=== PATIENT | male | born 1965 | race Caucasian/White ===

== ENCOUNTER 2020-10-05 07:50 | Emergency (ER) | payer BC, SELFPAY ==
[2020-10-05 07:56] VITALS: BP 167/123; PULSE 114; RESP 20; TEMP 36.9; O2SAT 98; BMI 27.1
--- NOTE | 2020-10-05 07:59 | ECG_ITS ---
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 Measurements Intervals [place] Rate: 116 P: 47 FL: 159 QRS: -39 QRSD: 93 T: 12 QT: 334 QTc: 464 Interpretive Statements SINUS TACHYCARDIA POSSIBLE LEFT ATRIAL ENLARGEMENT [-0.1mV P WAVE IN V1/V2] LEFT AXIS DEVIATION [QRS AXIS < -30] POSSIBLE LEFT VENTRICULAR HYPERTROPHY No previous ECG available for comparison Electronically Signed On 10-05-2020 18:27:06 FARM FACILITY MANAGER by Yady Taylor M.D. [email or web address]
--- NOTE | 2020-10-05 07:59 | XR_ITS ---
WS: [id number] PORTABLE CHEST HISTORY: Chest pain with heartburn and vomiting. COMPARISON: None available. Lungs are clear and well expanded. No pleural effusion or pneumothorax. Cardiac size: Normal. Mediastinum/Aorta: Normal mediastinum. No osseous abnormality seen. XR/XR chest 1V portable 82512 IMPRESSION: Unremarkable portable chest.
--- NOTE | 2020-10-05 08:00 | ED_ITS ---
HPI - Abdominal Pain General: Chief Complaint: Abdominal Pain Stated Complaint: n/v/heartburn Time Seen by Provider: 10/05/20 07:54 Source: patient Mode of arrival: ambulatory Limitations: no limitations History of Present Illness: HPI narrative: 55-year-old male states been having epigastric dull pain over the last 2 to 3 days with vomiting. He states he has a history of heartburn and it feels similar. States pain is sharp in nature and rates it a 5 out of 10. Denies any worsening or improving factors. Denies any chest pain denies any fever. He has had no diarrhea or constipation. No history of abdominal surgeries. Associated Symptoms: Reports nausea and vomiting; Denies chills, dysuria and fever(s) Review of Systems Const: Denies: fever(s), chills, body aches or change in appetite Eyes: Denies: blurry vision or eye discomfort ENMT: Denies: throat pain or dental pain Card: Denies: chest pain Resp: Denies: dyspnea GI: Reports: abdominal pain, nausea and vomiting : Denies: dysuria Musc: Denies: neck pain or back pain Skin/Breast: Denies: rash Neuro: Denies: headache(s) Psych: Denies: depression Benitez/Lymph: Denies: easy bruising All/Imm: Denies: urticaria Physical Exam Const: COMMON NORMALS: no acute distress, patient oriented x3 and healthy appearing HENMT: COMMON NORMALS: normocephalic and atraumatic HEAD & SCALP: normocephalic and atraumatic Eye: COMMON NORMALS: Equal, round and reactive pupils present and EOMs intact bilaterally PUPIL: Yes Equal, round and reactive pupils present Neck/C-Spine: COMMON NORMALS: full ROM and supple Chest: COMMONS NORMALS: normal inspection of the chest and normal palpation of entire chest wall Resp: COMMON NORMALS: normal respiratory effort, No retractions, No use of accessory muscles and clear to auscultation bilaterally AUSCULTATION: clear to auscultation bilaterally Cardio: COMMON NORMALS: regular rhythm and No murmurs present (Cardio) RATE: tachycardic RHYTHM: regular rhythm GI: COMMON NORMALS: Normal to inspection, nondistended, normoactive bowel sounds present, Soft to palpation, non-tender and no masses PALPATION: Yes Soft to palpation Extremity: COMMON NORMALS: normal to inspection and full ROM Neuro: COMMON NORMALS: patient oriented x3, moves all extremities and no focal motor deficits Psych: COMMON NORMALS: mental status grossly normal, Normal thought process present and cooperative THOUGHT PROCESS: Normal thought process present Skin: COMMON NORMALS: no rashes or lesions noted and no wounds GENERAL SKIN EXAM: no rashes or lesions noted Course Vital Signs: Vital signs: Vital Signs Temperature 98.5 F 10/05/20 07:56 Pulse Rate 102 H 10/05/20 10:18 Respiratory Rate 18 10/05/20 10:18 Blood Pressure 149/111 10/05/20 10:18 Pulse Oximetry 96 10/05/20 10:18 MDM - Abdominal Pain MDM Narrative: Medical decision making narrative: Cal presents here with abdominal pain is epigastric in nature and likely reflux. [place] much improved after GI cocktail. He has no right lower quadrant tenderness no sign of appendicitis. He does have hypercalcemia. We will start him on Protonix and he is to follow-up his PCP in 1 week for lab redraw. He is to return if worsening. He understands and agrees to the plan. Lab Data: Labs: Lab Results 10/05/20 10/05/20 10/05/20 Range/Units 08:17 08:17 08:17 WBC 11.8 H (4.0-10.0) 10^3/ uL RBC 6.03 H (4.1-5.3) 10^6/u L Hgb 17.6 H (11.7-16.6) g/dL Hct 51.9 (42.0-52.0) % MCV 86.1 (80-94) fL MCH 29.2 (28.0-34.0) pg MCHC 33.9 (30.0-36.0) g/dL RDW 13.1 (12.1-15.1) % Plt Count 187 (130-400) 10^3/c mm MPV 11.3 H (7.4-10.4) fL Neut % (Auto) 83.7 % Lymph % (Auto) 6.7 % [place] % (Auto) 8.9 % Eos % (Auto) 0.1 % Baso % (Auto) 0.3 % Neut # (Auto) 9.87 H (1.8-7.7) 10^3/u L Lymph # (Auto) 0.8 (0.8-4.8) 10^3/u L [place] # (Auto) 1.1 H (0.2-0.9) 10^3/u L Eos # (Auto) 0.0 (0.0-0.8) 10^3/u L Baso # (Auto) 0.0 (0.0-0.1) 10^3/u L Nucleated RBC % (a uto) 0 % Nucleated RBCs # 0.0 /100WBC D-Dimer (0-0.59) ug/mIFE U Sodium 134 L (136-145) mmol/L Potassium 3.7 (3.5-5.1) mmol/L Chloride 91 L (98-107) mmol/L Carbon Dioxide 30 H (22-29) mmol/L Anion Gap 16.7 (5-19) BUN 24 H (6-20) mg/dL Creatinine 1.3 H (0.7-1.2) mg/dL GFR Calculation 57.5 L (90-130) mL/min Glucose 140 H (65-115) mg/dL Calculated Osmolal ity 284 L (285-295) mOsm/k g Lactate 1.2 (0.5-2.2) mmol/L Calcium 15.1 H* (8.5-10.5) mg/dL Total Bilirubin 1.2 (0.15-1.2) mg/dL AST 48 H (0-40) U/L ALT 49 H (0-41) U/L Alkaline Phosphata se 78 (40-130) IU/L Troponin T Baselin e (0-15) ng/L Total Protein 7.6 (6.6-8.7) g/dL Albumin 4.6 (3.5-5.2) g/dL Globulin 3.0 (1.3-4.6) g/dL Lipase 116 H (13-60) U/L 10/05/20 10/05/20 Range/Units 08:17 08:17 WBC (4.0-10.0) 10^3/ uL RBC (4.1-5.3) 10^6/u L Hgb (11.7-16.6) g/dL Hct (42.0-52.0) % MCV (80-94) fL MCH (28.0-34.0) pg MCHC (30.0-36.0) g/dL RDW (12.1-15.1) % Plt Count (130-400) 10^3/c mm MPV (7.4-10.4) fL Neut % (Auto) % Lymph % (Auto) % [place] % (Auto) % Eos % (Auto) % Baso % (Auto) % Neut # (Auto) (1.8-7.7) 10^3/u L Lymph # (Auto) (0.8-4.8) 10^3/u L [place] # (Auto) (0.2-0.9) 10^3/u L Eos # (Auto) (0.0-0.8) 10^3/u L Baso # (Auto) (0.0-0.1) 10^3/u L Nucleated RBC % (a uto) % Nucleated RBCs # /100WBC D-Dimer 1.10 H (0-0.59) ug/mIFE U Sodium (136-145) mmol/L Potassium (3.5-5.1) mmol/L Chloride (98-107) mmol/L Carbon Dioxide (22-29) mmol/L Anion Gap (5-19) BUN (6-20) mg/dL Creatinine (0.7-1.2) mg/dL GFR Calculation (90-130) mL/min Glucose (65-115) mg/dL Calculated Osmolal ity (285-295) mOsm/k g Lactate (0.5-2.2) mmol/L Calcium (8.5-10.5) mg/dL Total Bilirubin (0.15-1.2) mg/dL AST (0-40) U/L ALT (0-41) U/L Alkaline Phosphata se (40-130) IU/L Troponin T Baselin e 11 (0-15) ng/L Total Protein (6.6-8.7) g/dL Albumin (3.5-5.2) g/dL Globulin (1.3-4.6) g/dL Lipase (13-60) U/L Imaging Data ^: CXR: Radiologist's impression: [address] [address] XRay Report Signed Patient: Cal Jacome Unit #: [id number] : 1965 Age/Sex: 55 / M ADM Date: 12/24 Loc: ER Room/Bed: Attending Dr: Ordering Provider/Ordering MD: Mary Nichols MD Date of Service: 10/05/20 Procedure(s): XR chest 1V portable 50850 Accession Number(s): [id number] Report Number: [id number] WS: [id number] PORTABLE CHEST HISTORY: Chest pain with heartburn and vomiting. COMPARISON: None available. Lungs are clear and well expanded. No pleural effusion or pneumothorax. Cardiac size: Normal. Mediastinum/Aorta: Normal mediastinum. No osseous abnormality seen. XR/XR chest 1V portable 05405 IMPRESSION: Unremarkable portable chest. CT Abd/Pel: Radiologist's impression: [place] [address] CT Scan Report Signed Patient: Cal Jacome Unit #: [id number] : 1965 Age/Sex: 55 / M ADM Date: 10/05/20 Loc: ER Room/Bed: Attending Dr: Ordering Provider/Ordering MD: Mary Nichols MD Date of Service: 10/05/20 Procedure(s): CT angio chest w abd pel w con Accession Number(s): [id number] Report Number: [id number] WS: [id number] CTA CHEST WITH CT ABDOMEN AND PELVIS. HISTORY: Nausea and vomiting with heartburn. Stomach pains. TECHNIQUE: CT angiogram is performed through the chest. Additional imaging is performed through the abdomen and pelvis with IV contrast. Sagittal and coronal reformats have been submitted. MIP imaging also reviewed. All CT scans at [facility] use at least one of these dose optimization techniques: automated exposure control; mA and/or kV adjustment per patient size (includes targeted exams where dose is matched to clinical indication); or iterative reconstruction. Contrast: Visipaque 95 cc IV. DLP: 3170.09 mGy.cm COMPARISON: Chest radiograph 10/05/2020. Chest CTA: Very limited opacification of the pulmonary artery. Multiple attempts for adequate opacification with unsuccessful. There is no complete occlusion. Other than that small thrombi cannot be excluded. Normal size aorta and great vessels. Heart size is normal. No pericardial or pleural effusion. No pulmonary mass. Micronodule measuring less than 3 mm lingu la. No mediastinal or hilar adenopathy. Very minimal esophageal wall thickening. Abdomen CT: Marked fluid distention of the stomach. On the sequences through the abdomen there is fluid noted now distending the distal esophagus from reflux disease. Liver, spleen, pancreas, adrenal glands and kidneys are negative. Normal aorta. No GI tract obstruction. There is high density material within the colon which is probably medicinal. No oral contrast was given for this examination. The appendix is slightly enlarged but there is no adjacent inflammation. Appendix measures [address]: Well-distended urinary bladder. No free fluid or adenopathy. No destructive bone lesions. CT/CT angio chest w abd pel w con IMPRESSION: 1. Marked fluid distention of the stomach with demonstration of gastroesophageal reflux. 2. An adequate opacification of the pulmonary arteries despite multiple attempts. No large central PE. Beyond that the opacification is very limited. 3. The appendix is top normal size with no adjacent inflammation. Very early acute appendicitis may appear similar. 4. No GI tract obstruction. EKG Data ^: EKG 1: Attestation: I personally reviewed and interpreted this EKG as follows: EKG interpretation date: 10/05/20 EKG interpretation time: 08:04 Interpretation: Sinus tachycardia heart rate 116 QRS 93 QTc [address] or T wave abnormalities EKG 2: Attestation: I personally reviewed and interpreted this EKG as follows: EKG interpretation date: 10/05/20 EKG interpretation time: 10:05 Interpretation: nsr hr [address] or t wave abnormalities qrs 89 qtc 417 Discharge Plan Discharge Patient Disposition: Home Clinical Impression: Hypercalcemia Abdominal pain Qualifiers: Abdominal location: epigastric Qualified Code(s): R10.13 - Epigastric pain Condition: Stable Prescriptions: New ondansetron 4 mg tablet,disintegrating 4 mg PO Q6H PRN (Reason: nausea and vomiting) Qty: 14 RF: 0 Protonix 40 mg tablet,delayed release (DR/EC) 40 mg PO DAILY Qty: 60 RF: 0 No Action multivitamin Tablet 1 tab PO DAILY PRN (Reason: unknown) RF: 0 Benadryl 1 cap PO PRN RF: 0 Discharge Orders: Discharge ED (Routine); Ordered 10/05/20 Ordered By: Mary Nichols Referrals: Jeronimo Hamm [Primary Care Provider] - 1-3 days Discharge Diet: Advance as tolerated Discharge Activity: Resume usual activity Patient Instructions: Abdominal Pain (ED), Hypercalcemia (ED) Coding Level of Care Code ED [employer] Curator for Chg Fwd Exam Comprehensive
[2020-10-05 08:35] LABS: Basophils % 0.3 %; Eosinophils % 0.1 %; Hematocrit 51.9 % (42.0-52.0); Hemoglobin 17.6 g/dL (11.7-16.6); Lymphocytes # 0.8 10^3/uL (0.8-4.8); Lymphocytes % 6.7 %; Mean Corpuscular HGB Conc 33.9 g/dL (30.0-36.0); Mean Corpuscular Hemoglobin 29.2 pg (28.0-34.0); Mean Corpuscular Volume 86.1 fL (80-94); Mean Platelet Volume 11.3 fL (7.4-10.4); Monocytes # 1.1 10^3/uL (0.2-0.9); Monocytes % 8.9 %; Neutrophils # 9.87 10^3/uL (1.8-7.7); Neutrophils % 83.7 %; Nucleated Red Blood Cells % 0 %; Platelet Count 187 10^3/cmm (130-400); Red Blood Count 6.03 10^6/uL (4.1-5.3); Red Cell Distribution Width 13.1 % (12.1-15.1); White Blood Count 11.8 10^3/uL (4.0-10.0)
[2020-10-05 08:50] VITALS: RESP 18
[2020-10-05] MEDS: ondansetron 2 mg/ML SDV 2 mL 4 MG IVP (08:50)
[2020-10-05] MEDS: morphine 4 mg/mL SDV 1 mL IVP (08:50)
[2020-10-05] MEDS: sodium chloride 0.9% 1,000 ML 999 ML IV (08:51)
[2020-10-05 08:56] LABS: Alanine Aminotransferase 49 U/L (0-41); Albumin Level 4.6 g/dL (3.5-5.2); Alkaline Phosphatase 78 IU/L (40-130); Anion Gap 16.7 (5-19); Aspartate Amino Transferase 48 U/L (0-40); Blood Urea Nitrogen 24 mg/dL (6-20); Carbon Dioxide 30 mmol/L (22-29); Chloride 91 mmol/L (98-107); Glomerular Filtration Rate 57.5 mL/min (90-130); Glucose 140 mg/dL (65-115); Lipase 116 U/L (13-60); Osmolality Calculated 284 mOsm/kg (285-295); Potassium 3.7 mmol/L (3.5-5.1); Sodium 134 mmol/L (136-145); Total Bilirubin 1.2 mg/dL (0.15-1.2); Total Protein 7.6 g/dL (6.6-8.7)
[2020-10-05] MEDS: lidocaine 2% viscous 15 ML, aluminum-mag hydrox-simethicon 30 ML, sucralfate oral liq 1 GM PO (08:56)
[2020-10-05 08:57] LABS: Lactate (Lactic Acid level) 1.2 mmol/L (0.5-2.2)
[2020-10-05 09:04] LABS: Calcium 15.1 mg/dL (8.5-10.5)
--- NOTE | 2020-10-05 09:05 | CT_ITS ---
WS: [id number] CTA CHEST WITH CT ABDOMEN AND PELVIS. HISTORY: Nausea and vomiting with heartburn. Stomach pains. TECHNIQUE: CT angiogram is performed through the chest. Additional imaging is performed through the a bdomen and pelvis with IV contrast. Sagittal and coronal reformats have been submitted. MIP imaging also reviewed. All CT scans at [facility] use at least one of these dose optimization tech niques: automated exposure control; mA and/or kV adjustment per patient size (includes targeted exams where dose is matched to clinical indication); or iterative reconstruction. Contrast: Visipaque 95 cc IV. DLP: 3170.09 mGy.cm COMPARISON: Chest radiograph 10/05/2020. Chest CTA: Very limited opacification of the pulmonary artery. Multiple attempts for adequate opacifi cation with unsuccessful. There is no complete occlusion. Other than that small thrombi cannot be exc luded. Normal size aorta and great vessels. Heart size is normal. No pericardial or pleural effusion. No pulmonary mass. Micronodule measuring less than 3 mm lingula. No mediastinal or hilar adenopathy. Very minimal esophageal wall thickening. Abdomen CT: Marked fluid distention of the stomach. On the sequences through the abdomen there is flu id noted now distending the distal esophagus from reflux disease. Liver, spleen, pancreas, adrenal gl ands and kidneys are negative. Normal aorta. No GI tract obstruction. There is high density material within the colon which is probably medicinal. No oral contrast was given for this examination. The appendix is slightly enlarged but there is no a djacent inflammation. Appendix measures [address]: Well-distended urinary bladder. No free fluid or adenopathy. No destructive bone lesions. CT/CT angio chest w abd pel w con IMPRESSION: 1. Marked fluid distention of the stomach with demonstration of gastroesophage al reflux. 2. An adequate opacification of the pulmonary arteries despite multiple attemp ts. No large central PE. Beyond that the opacification is very limited. 3. The appendix is top normal size with no adjacent inflammation. Very early a cute appendicitis may appear similar. 4. No GI tract obstruction.
[2020-10-05 09:19] LABS: Troponin(5th) Baseline 11 ng/L (0-15)
[2020-10-05] MEDS: iodixanol 320 mg/mL 100mL Btl IV ×2 (09:36→09:37)
[2020-10-05 10:18] VITALS: BP 149/111; PULSE 102; RESP 18; O2SAT 96
[2020-10-05 10:45] VITALS: BP 159/110; PULSE 95; RESP 18; O2SAT 96
[2020-10-05 10:46] VITALS: BP 159/110; PULSE 95; RESP 18; O2SAT 96
[2020-10-05 10:55] LABS: Troponin 5 2HR 11.84 ng/L (0-15); Troponin 5 2HR Delta 0.84 ABS# (0-10)
== END 2020-10-05 10:50 | disposition home or self-care (01) ==
PROVIDERS: Emergency Provider Emergency Medicine; PCP Family Medicine
DX: R10.13 Epigastric pain (principal); E83.52 Hypercalcemia
CPT/HCPCS: 12345; 71045; 71275; 74177; 80053; 83605; 83690; 84484; 85025; 85378; 93005; 96361; 96374; 96375; 99282; 99284; J2270; J2405; J7030; Q9967